=== PATIENT | female | born 1995 | race Caucasian/White ===

== ENCOUNTER → 2017-10-04 13:30 | Outpatient (CLI) | payer MEDICAID ==
[~2017-10-04 13:30] MED LIST: HYDROCODONE-APA1 TAB PO; IBUPROFEN600 MG PO; PRENATAL COMPLE1 TAB PO
[2017-11-22 05:43] VITALS: BMI 24.7
== END | disposition home or self-care (01) ==
LOC: D.LDO 13:30
PROVIDERS: Obstetrics & Gynecology
DX: O26.893 Other specified pregnancy related conditions, third trimester (principal); Z3A.31 31 weeks gestation of pregnancy

== ENCOUNTER → 2017-11-11 16:47 | Outpatient (CLI) | payer MEDICAID ==
[~2017-11-11 16:47] MED LIST changes: -HYDROCODONE-APA1 TAB PO; -IBUPROFEN600 MG PO
[2017-11-11 17:40] LABS: APPEARANCE HAZY (CLEAR); BILIRUBIN NEGATIVE (NEGATIVE); COLOR YELLOW (YELLOW); GLUCOSE NEGATIVE (NEGATIVE); KETONE NEGATIVE (NEGATIVE); NITRITE NEGATIVE (NEGATIVE); PH 7.5 (5.0-6.0); PROTEIN NEGATIVE (NEGATIVE)
[2017-11-22 05:43] VITALS: BMI 24.7
== END | disposition home or self-care (01) ==
LOC: D.LDO 16:47
PROVIDERS: Obstetrics & Gynecology
DX: O26.893 Other specified pregnancy related conditions, third trimester (principal); Z3A.36 36 weeks gestation of pregnancy; R10.30 Lower abdominal pain, unspecified; M54.5 Low back pain; R10.2 Pelvic and perineal pain

== ENCOUNTER 2017-11-22 05:32 | Inpatient (IN) | payer MEDICAID ==
[2017-11-22] VITALS (14 sets, daily range): BP systolic 96–129; BP diastolic 52–77; Ht 162.6 cm; Wt 65.3 kg
[~2017-11-22] VITALS: Ht 162.6 cm; Wt 65.3 kg
--- NOTE | ~2017-11-22 | OP ---
PATIENT NAME: ANITA DANG MEDICAL RECORD: [id number] :94 LOCATION:[id number]1274 ADMISSION DATE:11/22/17 SURGEON: LV PEOPLES MD DATE OF OPERATION: 11/22/2017 PREOPERATIVE DIAGNOSES: History of times 3, the patient desires permanent sterility. POSTOPERATIVE DIAGNOSES: History of times 3, the patient desires permanent sterility as well as extensive adhesive disease. PROCEDURE: Repeat low transverse section as well as bilateral distal salpingectomy. SURGEON: Lv Peoples MD ANESTHESIA: Regional. INTRAVENOUS FLUIDS: Per anesthesia record. ESTIMATED BLOOD LOSS: 1000 cc. FINDINGS: 1. 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 Viable female infant, Apgars 9 at 1 and 9 at 5. 2. Placenta delivered manually intact, 3-vessel cord noted. SPECIMENS: Included placenta, cord for gases, and distal tubal segments. COMPLICATIONS: None apparent. PROCEDURE: The patient was taken to the operating room where regional anesthesia was achieved without difficulty. The patient was then prepped and draped in normal sterile fashion in the dorsal supine position. Following prep and drape, a Alexander catheter had been placed. SCDs were on and functioning normally. At this point, a repeat Pfannenstiel skin incision was made, extended downward to the underlying subcutaneous fat to level of the fascia. Fascia was then carefully excised to the level of the rectus muscle and then bilaterally dissected using the Daniel scissors. The superior and inferior aspects of the fascial incision were then grasped with Matt clamps times 2 superiorly and dissected off the rectus muscle using the Bovie cautery and Daniel scissors. Careful dissection was performed on the lower fascial incision as adhesive disease to the bladder and underlying uterus was noted. The fascia was carefully dissected away from the bladder and extensive lysis of adhesions was performed involving adhesive disease involving the uterus and rectus fascia. Following a clear access to the lower uterine segment, a bladder blade was placed and then a low transverse incision was made with the scalpel and extended superiorly and inferiorly using the Pelosi method. The 's head was then delivered atraumatically followed by the body. was bulb suctioned upon delivery. Cord was clamped times 2, cut, and the infant was handed to the awaiting nursery team. Cord was then taken for gases and the placenta was removed manually intact, 3-vessel cord was noted. The uterus was exteriorized, cleared of all clots and debris and vigorously massaged and a good tone was noted. The fascial incision was repaired with 0 Vicryl in a running locked OPERATIVE REPORT [id number] ANITA DANG fashion times 2 with good hemostasis noted. Posterior cul-de-sac was then thoroughly irrigated and the uterus was replaced into the pelvis. Anterior cul-de-sac was then thoroughly irrigated and the uterine incision was found to be hemostatic. Counts were correct times 2 for needles, sponges, and instruments. The fascia was repaired with 0 loop PDS times 1 and the skin repaired with iliana. TRANSINT:[id number] Voice Confirmation ID: [id number] DOCUMENT ID: [id number] LV PEOPLES MD at 1304 CC: [id number] DICTATION DATE: 01/12/18 0635 FILBERT GROWER: 01/12/18 0708 DIS IN 11/24/17 [id number] [place] [address]
[2017-11-22 06:35] LABS: HEMATOCRIT 30.9 % (36.0-48.0); HEMOGLOBIN 9.9 g/dL (12-16); MCH 26.5 pg (26.0-34.0); MCV 82.8 fL (80.0-100.0); MEAN PLATELET VOLUME 10.9 fL (7.4-10.4); RBC 3.73 10x6/uL (4.00-5.40); RDW 13.8 % (11.5-14.5); WBC 13.3 10x3/uL (4.8-10.8)
[2017-11-22 06:37] LABS: APPEARANCE HAZY (CLEAR); BILIRUBIN NEGATIVE (NEGATIVE); COLOR YELLOW (YELLOW); GLUCOSE NEGATIVE (NEGATIVE); KETONE NEGATIVE (NEGATIVE); NITRITE NEGATIVE (NEGATIVE); PROTEIN NEGATIVE (NEGATIVE)
[2017-11-22 06:47] LABS: UDS - AMPHET NEGATIVE QUAL (NEGATIVE); UDS - BARB NEGATIVE QUAL (NEGATIVE); UDS - BENZO NEGATIVE QUAL (NEGATIVE); UDS - COCAINE NEGATIVE QUAL (NEGATIVE); UDS - OPIATE NEGATIVE QUAL (NEGATIVE); UDS - PCP NEGATIVE QUAL (NEGATIVE); UDS - THC NEGATIVE QUAL (NEGATIVE)
[2017-11-22 14:31] LABS: BASOPHILS 0.1 % (0-2); EOSINOPHILS 0.5 % (0-7); HEMATOCRIT 29.4 % (36.0-48.0); HEMOGLOBIN 9.4 g/dL (12-16); IMMATURE GRANULOCYTES 0.3 % (0-5); LYMPHOCYTES 11.9 % (15-50); MCH 26.7 pg (26.0-34.0); MCV 83.5 fL (80.0-100.0); MEAN PLATELET VOLUME 10.9 fL (7.4-10.4); MONOCYTES 5.9 % (2-11); NEUTROPHILS 81.3 % (40-80); PLATELET COUNT 191 10x3/uL (130-400); RBC 3.52 10x6/uL (4.00-5.40); RDW 13.8 % (11.5-14.5)
[2017-11-22 14:33] LABS: WBC 18.7 10x3/uL (4.8-10.8)
[2017-11-23 02:45] VITALS: BP 110/71
[2017-11-23 04:25] LABS: BASOPHILS 0.1 % (0-2); HEMATOCRIT 30.3 % (36.0-48.0); HEMOGLOBIN 9.6 g/dL (12-16); IMMATURE GRANULOCYTES 0.3 % (0-5); LYMPHOCYTES 9.9 % (15-50); MCH 26.5 pg (26.0-34.0); MCHC 31.7 g/dL (31.0-37.0); MCV 83.7 fL (80.0-100.0); MEAN PLATELET VOLUME 11.3 fL (7.4-10.4); MONOCYTES 5.9 % (2-11); NEUTROPHILS 82.8 % (40-80); PLATELET COUNT 190 10x3/uL (130-400); RBC 3.62 10x6/uL (4.00-5.40); RDW 13.5 % (11.5-14.5); WBC 15.4 10x3/uL (4.8-10.8)
[2017-11-23 06:15] LABS: RAPID PLASMA REAGIN Non Reactive (Non Reactive)
[2017-11-23 07:47] VITALS: BP 114/69
[2017-11-23 13:45] VITALS: BP 117/63
[2017-11-23 20:26] VITALS: BP 118/55
[2017-11-23 23:12] VITALS: BP 116/56
[2017-11-24 07:40] VITALS: BP 120/74
[2017-11-24] MEDS ORDERED: HYDROCODONE-APA1 TAB PO (10:37)
[2017-11-24] MEDS ORDERED: IBUPROFEN600 MG PO (10:37)
== END 2017-11-24 11:20 | disposition home or self-care (01) | DRG 766 ==
LOC: D.LD 05:32 → D.SDCHOLD 07:30 → D.LD 11-24 11:20
PROVIDERS: Obstetrics & Gynecology
PROC: 10D00Z1 Extraction of Products of Conception, Low, Open Approach (ICD-10-PCS; principal; 2017-11-22 07:30)
PROC: 0UB70ZZ Excision of Bilateral Fallopian Tubes, Open Approach (ICD-10-PCS; 2017-11-22 07:30)
DX: O99.334 Smoking (tobacco) complicating childbirth (principal); Z3A.39 39 weeks gestation of pregnancy; Z37.0 Single live birth; O34.219 Maternal care for unspecified type scar from previous cesarean delivery; Z30.2 Encounter for sterilization; N73.6 Female pelvic peritoneal adhesions (postinfective); N32.89 Other specified disorders of bladder; Z30.09 Encounter for other general counseling and advice on contraception

== ENCOUNTER 2018-11-23 23:33 | Emergency (ER) | payer MEDICAID ==
[~2018-11-23] VITALS: Ht 162.6 cm; Wt 61.4 kg
[~2018-11-23 23:33] MED LIST changes: +HYDROCODONE-APA1 TAB PO; +IBUPROFEN600 MG PO
[2018-11-23 23:39] VITALS: Ht 162.6 cm; Wt 61.4 kg
[2018-11-23] MEDS ORDERED: PENICILLIN (23:41)
[2018-11-23 23:56] LABS: APPEARANCE HAZY (CLEAR); BILIRUBIN NEGATIVE (NEGATIVE); COLOR YELLOW (YELLOW); GLUCOSE NEGATIVE (NEGATIVE); KETONE SMALL mg/dL (NEGATIVE); NITRITE NEGATIVE (NEGATIVE); PROTEIN NEGATIVE (NEGATIVE); SPECIFIC GRAVITY 1.025 (1.005-1.020); UROBILINOGEN NORMAL (NORMAL)
[2018-11-23 23:59] LABS: BASOPHILS 0.1 % (0-2); EOSINOPHILS 0.5 % (0-7); HEMATOCRIT 35.7 % (36.0-48.0); HEMOGLOBIN 11.5 g/dL (12-16); IMMATURE GRANULOCYTES 0.3 % (0-5); LYMPHOCYTES 13.8 % (15-50); MCH 26.7 pg (26.0-34.0); MCHC 32.2 g/dL (31.0-37.0); MCV 82.8 fL (80.0-100.0); MEAN PLATELET VOLUME 10.4 fL (7.4-10.4); MONOCYTES 7.3 % (2-11); RBC 4.31 10x6/uL (4.00-5.40); RDW 14.9 % (11.5-14.5); WBC 14.7 10x3/uL (4.8-10.8)
[2018-11-24 00:02] LABS: PLATELET COUNT 269 10x3/uL (130-400)
[2018-11-24 00:10] LABS: HCG SERUM NEGATIVE (NEGATIVE)
[2018-11-24 00:19] LABS: ALBUMIN 3.9 g/dL (3.4-5.0); ALKALINE PHOSPHATASE 68 U/L (46-116); ALT (SGPT) 15 U/L (10-68); BILIRUBIN - TOTAL 0.43 mg/dL (0.2-1.3); CALC OSMOLALITY 278 mosm/kg (275-300); CALCIUM 9.1 mg/dL (8.5-10.1); CARBON DIOXIDE 26.7 mmol/L (21.0-32.0); CHLORIDE - SERUM 104 mmol/L (98-107); CREATININE - SERUM 0.5 mg/dL (0.6-1.3); GLUCOSE 94 mg/dL (74-106); POTASSIUM - SERUM 3.6 mmol/L (3.5-5.1); PROTEIN - SERUM 7.9 g/dL (6.4-8.2); SODIUM 140 mmol/L (136-145); UREA NITROGEN 12 mg/dL (7-18); eGFR NON AFRICAN AMERICAN > 90 mL/min (90-120)
[2018-11-24 00:25] LABS: AMYLASE - SERUM 46 U/L (25-115); LIPASE 119 U/L (73-393)
[2018-11-24 00:27] LABS: TROPONIN-I < 0.017 ng/mL (0.000-0.060)
[2018-11-24] MEDS ORDERED: ULTRAM50 MG PO (03:28)
[2018-11-24 04:36] VITALS: BP 132/80
[2018-11-27 03:07] LABS: CHLAMYDIA TRACHOMATIS, NAA Negative (Negative)
== END 2018-11-24 04:36 | disposition home or self-care (01) ==
LOC: D.ER 23:33
PROVIDERS: Family Medicine
DX: N73.9 Female pelvic inflammatory disease, unspecified (principal)

== ENCOUNTER 2019-09-06 13:26 | Emergency (ER) | payer SELFPAY ==
[~2019-09-06] VITALS: Ht 162.6 cm; Wt 65.0 kg
[~2019-09-06 13:26] MED LIST changes: +PENICILLIN; +ULTRAM50 MG PO
[2019-09-06 13:31] VITALS: Ht 162.6 cm; Wt 65.0 kg
[2019-09-06 14:13] VITALS: BP 118/78
== END 2019-09-06 14:14 | disposition home or self-care (01) ==
LOC: D.ER 13:26
DX: R05 Cough (principal)